=== PATIENT | female | born 1985 | race Two or more races ===

== ENCOUNTER 2020-06-13 13:36 | Emergency (ER) | payer SELFPAY ==
[~2020-06-13] VITALS: Ht 170.2 cm; Wt 54.4 kg
[2020-06-13] MEDS ORDERED: Ketorolac 30mg Inj IM ONE (14:00)
[2020-06-13] MEDS ORDERED: Methocarbamol 500mg tab ORAL ONE (14:00)
--- NOTE | 2020-06-13 14:09 | Emergency Room Report ---
History of Present Illness General Chief Complaint: Back Pain-No Injury Source: Patient Present Illness HPI 34-year-old female with no significant past medical history here complaining of 4 days 7 thoracic denies any pain radiation, denies any tingling numbness. Denies any fall or injury. Denies any shortness of breath or chest pain. Denies any low back pain, denies . Has not taken medication for symptom relief. Patient is currently not breast-feeding. Patient is neurovascularly intact no unilateral generalized weakness noted. Allergies: Coded Allergies: No Known Allergies (Unverified , 06/13/20) COVID-19 Screening Contact w/high risk pt: No Experienced COVID-19 symptoms?: No COVID-19 Testing performed [employer]: No Patient History Past Medical History: see triage record Past Surgical History: none Pertinent Family History: none Last Menstrual Period: 05/25/20 Now: No Immunizations: UTD Reviewed Nursing Documentation: PMH: Agreed; PSxH: Agreed Nursing Documentation-PMH Past Medical History: No Stated History Review of Systems All Other Systems: negative except mentioned in HPI Physical Exam Vital Signs Date Time Temp Pulse Resp B/P (MAP) Pulse Ox O2 Delivery O2 Flow Rate FiO2 06/13/20 13:40 98.2 66 16 108/71 (83) 97 Room Air Sp02 EP Interpretation: reviewed, normal General Appearance: no apparent distress, alert, GCS 15, non-toxic Head: normocephalic, atraumatic Eyes: bilateral eye normal inspection, bilateral eye PERRL ENT: hearing grossly normal, normal pharynx, no angioedema, normal voice Neck: full range of motion, supple/symm/no masses Respiratory: chest non-tender, lungs clear, normal breath sounds, no rhonchi Cardiovascular #1: regular rate, rhythm, no edema Cardiovascular #2: 2+ radial (R), 2+ radial (L), 2+ dorsalis pedis (R), 2+ dorsalis pedis (L) Gastrointestinal: soft Rectal: deferred Genitourinary: no CVA tenderness Musculoskeletal: back normal, no calf tenderness, non-tender Neurologic: alert, motor strength/tone normal, oriented x3, sensory intact, responsive, speech normal Psychiatric: judgement/insight normal, memory normal, mood/affect normal, no suicidal/homicidal ideation Skin: no rash Lymphatic: no adenopathy Medical Decision Making PA Attestation Diagnosis and treatment plans were reviewed and discussed with my supervising physician Dr. Huntley Diagnostic Impression: Primary Impression: Thoracic myofascial strain ER Course 34-year-old female with no significant past medical history here complaining of 4 days 7 thoracic denies any pain radiation, denies any tingling numbness. Denies any fall or injury. Denies any shortness of breath or chest pain. Denies any low back pain, denies . Has not taken medication for symptom relief. Patient is currently not breast-feeding. Patient is neurovascularly intact no unilateral generalized weakness noted. Ddx considered but are not limited to : thoracic spine fracture, thoracic spine strain, thoracic spine sprain, radiculopathy. Vital signs: are WNL, pt. is afebrile H&PE are most consistent with: thoracic strain ORDERS: Thoracic spine XR, Motrin, Robaxin, lidocaine patch ED INTERVENTIONS: Toradol, Robaxin DISCHARGE: At this time pt. is stable for d/c to home. Will provide printed patient care instructions, and any necessary prescriptions. Care plan and follow up instructions have been discussed with the patient prior to discharge. Take medication as directed, follow-up with primary care provider, avoid strenuous physical activity, if worsening symptoms return to the emergency room Other X-Ray Diagnostic Results Other X-Ray Diagnostic Results : X-Ray ordered: T-spine x-ray # of Views/Limited Vs Complete: 3 View Indication: Pain EP Interpretation: Yes PA Xray: Interpretation reviewed, by supervising MD, and agrees with findings. Interpretation: no dislocation, no soft tissue swelling, no fractures Impression: No acute disease Electronically Signed by: Reba Santiago PA-C Last Vital Signs Date Time Temp Pulse Resp B/P (MAP) Pulse Ox O2 Delivery O2 Flow Rate FiO2 06/13/20 13:40 98.2 66 16 108/71 (83) 97 Room Air Disposition: HOME, SELF-CARE Condition: Stable Scripts Lidocaine Patch* (Lidoderm Patch*) 1 Each Adh..patch 1 PATCH TOPIC DAILY, #30 PATCH Patch(es) may remain in place for up to 12 hours in any 24-hour period. Prov: Reba Gray 06/13/20 Ibuprofen* (MOTRIN*) 600 Mg Tablet 600 MG ORAL Q6H PRN for For Pain, #30 TAB 0 Refills Prov: Reba Gray 06/13/20 Methocarbamol* (ROBAXIN-500*) 500 Mg Tablet 500 MG ORAL TID PRN for For Pain, #15 TAB 0 Refills Prov: Reba Gray 06/13/20 Patient Instructions: Thoracic Strain, [id number] Additional Instructions: take medication as directed, follow-up with your primary care provider, avoid strenuous physical activity if worsening symptoms return to the Emergency Room Reba Gray Jun 13, 2020 14:09
[2020-06-13] MEDS ORDERED: LIDODERM700 M1 TOPIC (14:10)
[2020-06-13] MEDS ORDERED: IBUPROFEN600 M1 ORAL (14:10)
[2020-06-13] MEDS ORDERED: ROBAXIN-500MG ORAL (14:10)
[2020-06-13 14:18] VITALS: BP 110/72
[2020-06-13 14:49] VITALS: BP 112/71
--- NOTE | 2020-06-13 16:55 | Diagnostic Imaging Report ---
EXAM: X-RAY XRAY T Spine 2v CLINICAL HISTORY: Back pain. COMPARISON: None FINDINGS: Total of 2 views of the thoracic spine were obtained. There is possible mild levocurvature of the lower thoracic and upper lumbar spine versus positioning. Alignment is otherwise anatomic. There is no fracture, bony lesions or erosions. Disc spaces appear unremarkable. Surrounding soft tissue is normal. IMPRESSION: NO ACUTE FRACTURE OR MALALIGNMENT. POSSIBLE SLIGHT LEVOCURVATURE OF THE LOWER THORACIC SPINE VERSUS POSITIONAL.
== END 2020-06-13 14:51 | disposition home or self-care (01) ==
LOC: EMR 14:05
DX: S29.012A Strain of muscle and tendon of back wall of thorax, initial encounter (principal); X58.XXXA Exposure to other specified factors, initial encounter; Y93.9 Activity, unspecified; Y92.9 Unspecified place or not applicable
CPT/HCPCS: 72070; 96372; 99283; J1885